=== PATIENT | male | born 1985 | race Caucasian/White ===

== ENCOUNTER 2016-10-27 14:56 | Emergency (ER) | payer OTHER ==
[~2016-10-27] VITALS: Ht 172.7 cm; Wt 68.0 kg
[~2016-10-27 14:56] MED LIST: CATAPRES 0.1MG0.1 M1 PO; CLONAZEPAM0.5 MG PO; DAILY MULTIPLE1 TAB PO; DURICEF500 MG PO; EFFEXOR XR75 M1 PO; HYDROXYZINE50 MG PO; OMEGA 31000 MG PO; SEROQUEL 100MG100 MG PO; VENLAFAXINE HYD75 M1 PO; VOLTAREN50 MG PO
--- NOTE | 2016-10-27 16:11 | ED PSYCHIATRIC COMPLAINT ---
History of Present Illness General Chief Complaint: Psychiatric Related Complaint Stated Complaint: BIBA SI Source: patient, police Exam Limitations: no limitations Vital Signs & Intake/Output Vital Signs & Intake/Output Vital Signs Date Time Temp Pulse Resp B/P Pulse O2 O2 Flow FiO2 Ox Delivery Rate 10/27 1853 98.1 83 18 106/63 95 Room Air 10/27 1558 98.6 90 18 128/91 98 Room Air Allergies Coded Allergies: Penicillins (GI UPSET PER PT 10/27/16) Reconcile Medications Quetiapine Fumarate 100 MG TABLET 1 TAB PO QPM UNK (Reported) Venlafaxine HCl (Effexor XR) 75 MG CAP.ER.24H 1 CAP PO DAILY MENTAL HEALTH ( Reported) Triage Note: PT BIBA ON PEER FOR SI. PER PEER "SAID HE WAS GOING TO SHOOT HIMSELF IN THE HEAD, FOUND WITH TAPE MEASURE AROUND NECK". PT ADAMANTLY DENIES SI TO THIS RN STATING "I'M DEPRESSED. MY MOM IN JULY". WHEN ASKED WHAT HE MIGHT HAVE DONE OR SAID THAT WOULD HAVE MADE HIS GIRLFRIEND OR HER MOTHER THINK HE WAS SUICIDAL HE RESPONDED "IF SAYING: COULD YOU PLEASE STOP TALKING TO ME I'M DONE." STATES "SHE'S DONE THIS TO ME 2 TIMES BEFORE" AND EACH TIME REPORTS HE WAS D/C'D FROM THE EMERGENCY ROOM AND DID NOT REQUIRE ADMISSION. PT ADMITS TO DRINKING ETOH TODAY, LAST DRINK APPROX 2 PM, STATES DRANK 1/2 PINT OF VODKA TODAY. STATES DOES NOT DRINK DAILY BUT MAYBE DRINKS 3-4 X PER WEEK. ADMITS TO OCCASIONAL MARAJUANA USE AND RARE COCAINE USE "I TRY TO STAY AWAY FROM THAT". ALSO REPORTS OCCASIONAL XANAX USE WHICH IS NOT PRESCRIBED TO HIM BUT HE WILL TAKE WHEN HE FEELS ANXIOUS. PT DENIES SI/HI. DENIES OTHER SUBSTANCE USE/ABUSE. PT COOPERATIVE WITH STAFF, SECURITY PRESENT FOR WANDING AND CHANGING PATIENT INTO PAPER BLUE SCRUBS. Triage Nurses Notes Reviewed? yes HPI: This patient is a 31-year-old male with a past medical history including depression and ulcerative colitis who was brought into the emergency department today on police paper for evaluation of possible suicidal ideation. The patient reported that he came home from work today to find his girlfriend came home with the police who told them that he tried to hang himself with a tape measure. The patient reported, "I have been cut by a tape measure in the past, if I had tried to hang myself 1, there would be cut and skelton on my neck." He is denying any suicidal or homicidal ideation. He reported, "my girlfriend has a mild form of ASBERGER'S and has a difficult time with some social situations." He reported that this is not the first time that she has reported him to the police for accusations of suicidal ideation. He reported that he has been suffering with depression since July 2016 when his mother but reported that he has been seeing his clinician and is being closely followed for this. The patient reported occasional alcohol use and occasional cocaine use. He reported that his last drink was today. He drank approximately a half a pint of vodka. The patient denied any fevers, chills, chest pain, difficulty breathing. (RAPHAEL CLARK PA-C) Past History Travel History Traveled to [place] past 21 day No Medical History Any Pertinent Medical History? 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 No (RAPHAEL CLARK PA-C) Review of Systems Review of Systems Constitutional: Reports: no symptoms. EENTM: Reports: no symptoms. Respiratory: Reports: no symptoms. Cardiovascular: Reports: no symptoms. GI: Reports: no symptoms. Genitourinary: Reports: no symptoms. Musculoskeletal: Reports: no symptoms. Skin: Reports: no symptoms. Neurological/Psychological: Reports: see HPI. All Other Systems: Reviewed and Negative (RAPHAEL CLARK PA-C) Physical Exam Physical Exam General Appearance: well developed/nourished, no apparent distress, alert, awake Neurological/Psychiatric: no motor/sensory deficits, awake, alert, normal mood/ affect, calm, gamma operator II-XII nml as tested, oriented x 3 Comments: Well-developed well-nourished person in no acute distress HEENT: Normal EENT exam, moist mucous membranes PERRLA bilaterally Back: Normal inspection. Normal gait Cardiovascular: Regular rate and rhythm with no murmurs, rubs, or gallops Respiratory: Chest nontender. No respiratory distress. Speaking in full sentences. Lungs clear to auscultation bilaterally with no wheezes, rales, or rhonchi Extremity: Normal and equal pulses Neuro: Alert oriented x3, cranial nerves II through XII grossly intact. Skin: No appreciable rash on exposed skin, skin is warm and dry. Psych: Mood and affect is normal SAD PERSONS Done? PATIENT DENYING SUICIDAL IDEATION (AMBER DIXON,RAPHAEL) Progress Differential Diagnosis: drug intoxication, drug overdose, drug withdrawal, electrolyte abnormality, encephalitis, alcohol intoxication, alcohol withdrawal, major depressive disorder, bipolar disorder, generalized anxiety disorder Plan of Care: Orders Procedure Date/time Status Regular Diet 10/28 B Active ED CRISIS PSYCH CONSULT 10/27 1602 Active Continuous Observation Monitor 10/27 1518 Active URINE DRUGS OF ABUSE 10/27 1518 Complete ETHANOL 10/27 1518 Complete COMPREHENSIVE METABOLIC PANEL 10/27 1518 Complete CBC WITHOUT DIFFERENTIAL 10/27 1518 Complete Laboratory Tests 10/27/16 1619: Anion Gap 16, Estimated GFR > 60, BUN/Creatinine Ratio 10.0, Glucose 75, Calcium 10.1, Total Bilirubin 1.5 H, AST 63 H, ALT 58, Alkaline Phosphatase 110, Total Protein 7.8, Albumin 4.6, Globulin 3.2, Albumin/Globulin Ratio 1.4, CBC w Diff NO MAN DIFF REQ, RBC 5.10, MCV 102.1 H, MCH 34.2 H, RDW 15.4 H, MPV 8.5, Gran % 53.5, Lymphocytes % 36.4, Monocytes % 6.9, Eosinophils % 2.1, Basophils % 1.1, Absolute Granulocytes 4.3, Absolute Lymphocytes 2.9, Absolute Monocytes 0.5, Absolute Eosinophils 0.2, Absolute Basophils 0.1, PUBS MCHC 33.5, Serum Alcohol 148.0 10/27/16 1559: Urine Opiates Screen < 100.00, Methadone Screen 59, Barbiturate Screen < 60, Ur Phencyclidine Scrn < 6.00, Amphetamines Screen < 100, U Benzodiazepines Scrn 604 H, Urine Cocaine Screen > 1000 H, Urine Cannabis Screen > 80.00 H Comments: Crisis cleared this patient psychiatrically. Stable for discharge home. (AMBER DIXON,RAPHAEL) Departure Departure Disposition: HOME OR SELF CARE Condition: Stable Clinical Impression Primary Impression: Depression Qualifiers: Depression Type: unspecified Qualified Code: F32.9 - Major depressive disorder, single episode, unspecified Referrals: PATIENT HAS NO PRIMARY CARE DR (PCP/Family) Additional Instructions: Please continue to take all previously prescribed medications as directed. Follow-up with your primary care physician. Return for any worsening symptoms or concerns. Departure Forms: Customer Survey General Discharge Information (AMBER DIXON,RAPHAEL) PA/CABLE SUPERVISOR Co-Sign Statement Statement: ED Attending supervision documentation- [] I saw and evaluated the patient. I have also reviewed all the pertinent lab results and diagnostic results. I agree with the findings and the plan of care as documented in the PA's/CABLE SUPERVISOR's documentation. [X] I have reviewed the ED Record and agree with the PA's/CABLE SUPERVISOR's documentation. [] Additions or exceptions (if any) to the PAs/CABLE SUPERVISOR's note and plan are summarized below: [] (DESI AYOUB DO)
[2016-10-27 16:25] LABS: ABSOLUTE BASOPHIL COUNT 0.1 /CUMM (0.0-0.2); ABSOLUTE EOSINOPHIL COUNT 0.2 /CUMM (0.0-0.7); ABSOLUTE GRANULOCYTE CT 4.3 /CUMM (1.4-6.5); ABSOLUTE LYMPH COUNT 2.9 /CUMM (1.2-3.4); ABSOLUTE MONOCYTE COUNT 0.5 /CUMM (0.10-0.60); BASOPHIL % 1.1 % (0.0-2.0); EOSINOPHIL % 2.1 % (0-5); GRANULOCYTE % 53.5 % (42.2-75.2); HEMATOCRIT 52.1 % (42-52); MEAN CORPUSCULAR HGB 34.2 PG (27.0-31.0); MEAN CORPUSCULAR HGB CONC 33.5 G/DL (33.0-37.0); MEAN CORPUSCULAR VOLUME 102.1 FL (80.0-94.0); MEAN PLATELET VOLUME 8.5 FL (7.4-10.4); PLATELET COUNT 181 /CUMM (130-400); RBC DISTRIBUTION WIDTH 15.4 % (11.5-14.5)
--- NOTE | 2016-10-27 17:12 | ED PSY CRISIS COLLATERAL NOTE ---
Collateral Note Collateral Note Family/Inform/Velia Contacts: Sandy Sunday SECURITY CONTROL ROOM OFFICER sees him outpatient, would like an update reports she just saw him a few days ago, he seemed "alright". [phone]
[2016-10-27] MEDS ORDERED: QUETIAPINE FUM100 M1 PO (18:49)
[2016-10-27 18:53] VITALS: BP 106/63
--- NOTE | 2016-10-27 20:13 | ED PSY CRISIS COLLATERAL NOTE ---
Collateral Note Collateral Note Family/Inform/Velia Contacts: pt. provided girlfriend's number for collateral information as "emergency contact" listed is grandmother, phone is busy and pt. explained that GM goes to bed early and leaves phone off the hook. Girlfriend Desi Skaggs was interviewed over the phone. She sounded concerned and expressed her concerns clearly. She stated her boyfriend has not been doing well since his mother's . She stated he knows what to say to providers to get what he wants. She stated he does not tell providers everything that is going on but she knows since they have been together for 4 years. She stated that the pt. expressed suicidal ideation last night and stated he was going to "put a bullet in his head, walk in front of a car, find a drug dealer to kill him". She stated he also shared that he had been saying "life is not worth living anymore". She stated that she went downstairs to find her boyfriend today and she found him lying in the closet unresponsive with a tape measure wrapped several times around his neck. She stated she began unwrapping it when he opened his eyes and stated that he was trying to kill himself. She expressed "if you guys release him he is going to try to do it again and I am going to find him . I have a 10 year old son, I can't put him through that." She reported that after finding pt. with the tape measure she called her therapist who advised her to call 911. She stated that after calling 911 he "passed out upstairs" and she believed it was due to asphyxiation or lack of oxygen rather than alcohol. She reported that her boyfriend's past treatments included "[facility]" in [place], where she stated he did well in his recovery. She also reported hospitalization at [facility] last year where he "stored his meds in his room in an attempt to kill himself while inpatient". She explained that he [facility] after taking an entire bottle of her prescription for Xanax and she stated he tried to convince the doctor's to let him go because "he didn't know what the pills were and it was an accident ". She stated she did not feel safe having him discharged from the hospital and feared he would attempt suicide again. (FRIEDA BROWN,TAYLOR)
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
== END 2016-10-27 22:53 ==
LOC: ERH 14:56
PROVIDERS: Physician Assistant
DX: F32.9 Major depressive disorder, single episode, unspecified (principal)
CPT/HCPCS: 80307; G0463; G0480